=== PATIENT | female | born 1980 | race Caucasian/White ===

== ENCOUNTER 2018-06-07 09:40 | Emergency (ER) | payer BC, OTHER ==
[2018-06-07 09:54] VITALS: TEMP 98.4; BMI 38.1
--- NOTE | 2018-06-07 10:04 | PDOC ---
History of Present Illness - General Chief Complaint: Vaginal Bleeding Stated Complaint: VAGINAL BLEEDING () History Source: Patient - History of Present Illness Initial Comments: 06/07/18 10:45 The patient is a 37 year old female with no PMH that presented to ER complaining of vaginal bleeding and lower abdominal cramping that started yesterday in the morning. The pain is intermittent, moderate, radiating to the back, no alleviating/aggravating factors. 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 The patient denies fever, chills, dysuria, frequency, nausea, vomiting, no vaginal injury, discharge, last sexual intercourse was last week. Her previous pregnancies were not complicated. Timing/Duration: reports: constant Quality: reports: moderate Abdominal Pain Onset Location: reports: other (lower abdomen) Pain Radiation: reports: back Aggravating Factors: improves with: None Alleviating Factors: improves with: None Past History - Past Medical History Allergies/Adverse Reactions: Allergies Allergy/AdvReac Type Severity Reaction Status Date / Time No Known Allergies Allergy Verified 08/28/15 16:05 Home Medications: Ambulatory Orders Nitrofurantoin Monohyd/M-Cryst [Macrobid -] 100 mg PO BID #10 capsule 06/07/18 Asthma: No Cancer: No Cardiac Disorders: No COPD: No Diabetes: No HTN: No Seizures: No Thyroid Disease: No - Surgical History Cholecystectomy: No - Immunization History Immunization Up to Date: No - Suicide/Smoking/Psychosocial Hx Smoking History: Never smoked Have you smoked in the past 12 months: No Information on smoking cessation initiated: No Hx Alcohol Use: No Drug/Substance Use Hx: No Hx Substance Use Treatment: No Review of Systems - Review of Systems Able to Perform ROS?: Yes Constitutional: No: Symptoms Reported HEENTM: No: Symptoms Reported Respiratory: No: Symptoms reported, Cough, Shortness of Breath Cardiac (ROS): No: Symptoms Reported, Chest Pain ABD/GI: Yes: Symptoms Reported, See HPI, Abdominal cramping, Other (vaginal bleeding). No: Nausea : Yes: Dysuria. No: Symptoms Reported Musculoskeletal: Yes: Symptoms Reported, Back Pain *Physical Exam - Vital Signs Last Vital Signs Temp Pulse Resp BP Pulse Ox 98.4 F 87 18 115/62 99 06/07/18 09:52 06/07/18 09:52 06/07/18 09:52 06/07/18 09:52 06/07/18 09:52 - Physical Exam Respiratory/Chest: positive: Lungs Clear. negative: Respiratory Distress, Accessory Muscle Use, Rhonchi, Stridor, Wheezing Cardiovascular: positive: Regular Rhythm, Regular Rate, S1, S2. negative: JVD, Murmur Female Pelvic Exam: positive: normal adnexa, normal size ovaries, vaginal bleeding, other (significant amount of vaginal bleeding, os couldn't be palpated or visualized). negative: adnexal tenderness Gastrointestinal/Abdominal: positive: Tender (mild tenderness to palpation in lower abdomen), Soft Moderate Sedation - Procedure Monitoring Vital Signs: Procedure Monitoring Vital Signs Temperature 98.4 F 06/07/18 09:52 Pulse Rate 87 06/07/18 09:52 Respiratory Rate 18 06/07/18 09:52 Blood Pressure 115/62 06/07/18 09:52 O2 Sat by Pulse Oximetry (%) 99 06/07/18 09:52 ED Treatment Course - LABORATORY CBC & Chemistry Diagram: 06/07/18 12:10 06/07/18 12:10 Medical Decision Making - Medical Decision Making 06/07/18 10:53 The patient is a 37 year old female according to positive test, that presented to ED complaining of vaginal bleeding and abdominal cramping. It is possibly miscarriage, we ordered CBC, CMP, UA, beta quant. and transvaginal US to confirm intrauterine . 06/07/18 12:21 US-no intrauterine identified. Labwork pending. Signed out to afternoon resident. *DC/Admit/Observation/Transfer Diagnosis at time of Disposition: Vaginal bleeding - Discharge Dispostion Disposition: HOME Condition at time of disposition: Stable - Prescriptions Prescriptions: Nitrofurantoin Monohyd/M-Cryst [Macrobid -] 100 mg PO BID #10 capsule - Referrals Referrals: [facility] [place] [Provider Group] Adrián Goddard MD [Staff Physician] - - Patient Instructions Printed Discharge Instructions: DI for Vaginal Bleeding Additional Instructions: You were seen in the emergency department for the evaluation of your vaginal bleeding. the ultrasound did not show a and your beta-hcg was approximately 101. Please return to our emergency department or your OBGYN or our referred OBGYN physician 48 hours after discharge for a repeat [facility] and ultrasound. Please return to the emergency department if you have worsening symptoms or new concerning symptoms such as fever/chills, new vaginal discharge , worsening abdominal pain, and nausea/vomiting. Thank you. - Post Discharge Activity Forms/Work/School Notes: Back to Work
--- NOTE | 2018-06-07 11:06 | PDOC ---
Attending Attestation - Resident Resident Name: AbenanorisswethaBere - ED Attending Attestation I have performed the following: I have examined & evaluated the patient, The case was reviewed & discussed with the resident, I agree w/resident's findings & plan, Exceptions are as noted - HPI HPI: 06/07/18 11:02 37 F @ 5 weeks by LMP presenting to ED with abdominal cramping and vaginal bleeding. Pt states she started having cramps last night. Reports heavy vaginal bleeding with clots. Denies F/C. Denies dysuria/flank pain. No N/V/D. - Physicial Exam PE: 06/07/18 11:03 "GENERAL: Awake, alert, and fully oriented, in no acute distress. HEAD: No signs of trauma EYES: PERRLA, EOMI, sclera anicteric, conjunctiva clear ENT: Auricles normal inspection, hearing grossly normal, nares patent, oropharynx clear without exudates. Moist mucosa NECK: Nontender, no stepoffs, Normal ROM, supple, no lymphadenopathy, JVD, or masses LUNGS: Breath sounds equal, clear to auscultation bilaterally. No wheezes, and no crackles HEART: Regular rate and rhythm, normal S1 and S2, no murmurs, rubs or gallops ABDOMEN: Soft, nontender, normoactive bowel sounds. No guarding, no rebound. No masses EXTREMITIES: Normal range of motion, no edema. No clubbing or cyanosis. No cords, erythema, or tenderness NEUROLOGICAL: Cranial nerves II through XII intact. 5/5 strength and sensation in all extremities, Normal speech, normal gait, normal cerebellar function SKIN: Warm, Dry, normal turgor, no rashes or lesions noted. : os closed, + blood in vault, no CMT or adnexal tenderness - Medical Decision Making 06/07/18 11:04 37 F @ 5 weeks by LMP presenting with vaginal bleeding and cramping. Benign abdominal exam. Possible spontaneous Ab. - Labs, T&S - TVUS 06/07/18 13:18 Labs notable for HCG 100 TVUS with no IUP Pt advised to have repeat US and bloodwork in 48 hours UA consistent with UTI. Will tx with macrobid. Pt is well appearing, with normal vitals. Clinically stable for DC at this time. I discussed the physical exam findings, ancillary test results and final diagnoses with the patient. I answered all of the patient's questions. The patient was satisfied with the care received and felt comfortable with the discharge plan and treatment plan. The patient agrees to follow up with the primary care physician within 24-72 hours.
[2018-06-07 12:39] LABS: BASO % 0.5 % (0-2.0); HEMATOCRIT 42.4 % (32.4-45.2); HEMOGLOBIN 13.8 GM/dL (10.7-15.3); LYMPH % 35.3 % (8-40); MCH 29.8 pg (25.7-33.7); MCHC 32.5 g/dl (32.0-36.0); MEAN CELL VOLUME 91.6 fl (80-96); MEAN PLT VOLUME 8.1 fl (7.5-11.1); MONO % 6.7 % (3.8-10.2); NEUT % 56.5 % (42.8-82.8); PLATELET COUNT 298 K/MM3 (134-434); RBC 4.63 M/mm3 (3.60-5.2); RDW 13.9 % (11.6-15.6); WHITE BLOOD COUNT 7.8 K/mm3 (4.0-10.0)
[2018-06-07 12:52] LABS: URINE APPEARANCE CLOUDY; URINE BILIRUBIN NEGATIVE (<2.0 mg/dL); URINE COLOR DKYELLOW; URINE GLUCOSE (UA) NEGATIVE (NEGATIVE); URINE KETONE NEGATIVE (NEGATIVE); URINE LEUK ESTERASE 1+ (NEGATIVE); URINE NITRITE NEGATIVE (NEGATIVE); URINE PROTEIN 1+ (NEGATIVE); URINE UROBILINOGEN NEGATIVE mg/dL (0.2-1.0)
[2018-06-07 13:06] LABS: EPI CELLS RARE /HPF (FEW); URINE BACTERIA MANY /hpf (NONE SEEN); URINE MUCUS RARE
[2018-06-07 13:14] LABS: ALBUMIN 3.6 g/dl (3.4-5.0); ALK PHOS 110 U/L (45-117); ANION GAP 7 MMOL/L (8-16); BILIRUBIN,TOTAL 0.4 mg/dL (0.2-1); BLOOD UREA NITROGEN 7 mg/dL (7-18); CALCIUM 8.9 mg/dL (8.5-10.1); CHLORIDE 105 mmol/L (98-107); CO2 28 mmol/L (21-32); CREATININE 0.5 mg/dL (0.55-1.3); GLUCOSE,RANDOM 66 mg/dL (74-106); POTASSIUM 4.1 mmol/L (3.5-5.1); SGOT/AST 43 U/L (15-37); SGPT/ALT 55 U/L (13-61); SODIUM 140 mmol/L (136-145); TOT PROT 7.2 g/dl (6.4-8.2)
--- NOTE | 2018-06-07 14:33 | PDOC ---
*Physical Exam - Vital Signs Last Vital Signs Temp Pulse Resp BP Pulse Ox 98.4 F 87 18 115/62 99 06/07/18 09:52 06/07/18 09:52 06/07/18 09:52 06/07/18 09:52 06/07/18 12:22 ED Treatment Course - LABORATORY CBC & Chemistry Diagram: 06/07/18 12:10 06/07/18 12:10 - ADDITIONAL ORDERS Additional order review: Laboratory Results 06/07/18 06/07/18 06/07/18 12:10 12:10 12:10 Sodium 140 Potassium 4.1 Chloride 105 Carbon Dioxide 28 Anion Gap 7 L BUN 7 Creatinine 0.5 L Creat Clearance w eGFR > 60 Random Glucose 66 L Calcium 8.9 Total Bilirubin 0.4 AST 43 H ALT 55 Alkaline Phosphatase 110 Total Protein 7.2 Albumin 3.6 Beta HCG, Quant 101.8 Urine Color Dkyellow Urine Appearance Cloudy Urine pH 6.0 Ur Specific Dyer 1.018 Urine Protein 1+ H Urine Glucose (UA) Negative Urine Ketones Negative Urine Blood 3+ H Urine Nitrite Negative Urine Bilirubin Negative Urine Urobilinogen Negative Ur Leukocyte Esterase 1+ H Urine WBC (Auto) 122 Urine RBC (Auto) 1711 Ur Epithelial Cells Rare Urine Bacteria Many Urine Mucus Rare Blood Type O POSITIVE Antibody Screen Negative 06/07/18 12:10 RBC 4.63 MCV 91.6 MCHC 32.5 RDW 13.9 MPV 8.1 Neutrophils % 56.5 Lymphocytes % 35.3 D Monocytes % 6.7 Eosinophils % 1.0 Basophils % 0.5 *DC/Admit/Observation/Transfer Diagnosis at time of Disposition: Vaginal bleeding - Discharge Dispostion Disposition: HOME Condition at time of disposition: Stable Decision to Admit order: No - Prescriptions Prescriptions: Nitrofurantoin Monohyd/M-Cryst [Macrobid -] 100 mg PO BID #10 capsule - Referrals Referrals: Adrián Goddard MD [Staff Physician] - [facility] [place] [Provider Group] - Patient Instructions Printed Discharge Instructions: DI for Vaginal Bleeding Additional Instructions: You were seen in the emergency department for the evaluation of your vaginal bleeding. the ultrasound did not show a and your beta-hcg was approximately 101. Please return to our emergency department or your OBGYN or our referred OBGYN physician 48 hours after discharge for a repeat bhcg and ultrasound. Please return to the emergency department if you have worsening symptoms or new concerning symptoms such as fever/chills, new vaginal discharge , worsening abdominal pain, and nausea/vomiting. Thank you. - Post Discharge Activity Forms/Work/School Notes: Back to Work
[2018-06-07 16:26] VITALS: BP 110/70; PULSE 82
== END 2018-06-07 15:15 | disposition home or self-care (01) ==
LOC: JER 09:40
DX: O26.891 Other specified pregnancy related conditions, first trimester (principal); Z3A.01 Less than 8 weeks gestation of pregnancy; N93.9 Abnormal uterine and vaginal bleeding, unspecified
CPT/HCPCS: 36415; 76830-TC; 80053; 81003; 81015; 84702; 85025; 86850; 86900; 86901; 87086; 87186; 99282-25

== ENCOUNTER 2020-04-24 17:15 | Inpatient (IN) | payer BC ==
--- OUTSIDE RECORDS SUMMARY | 2020-04-24 19:15 | XMS ---
:1980 Author Organization [facility] Support Name Relationship Address Phone ESPINOSA HANDS Unavailable [address] [place] [address] ESSENCE CONNELLY [address] [phone] [place] [address] Re-disclosure Warning The records that you are about to access may contain information from federally- assisted alcohol or drug abuse programs. If such information is present, then the following federally mandated warning applies: This information has been disclosed to you from records protected by federal confidentiality rules (42 CFR part 2). The federal rules prohibit you from making any further disclosure of this information unless further disclosure is expressly permitted by the written consent of the person to whom it pertains or as otherwise permitted by 42 CFR part 2. A general authorization for the release of medical or other information is NOT sufficient for this purpose. The Federal rules restrict any use of the information to criminally investigate or prosecute any alcohol or drug abuse patient.The records that you are about to access may contain highly sensitive health information, the redisclosure of which is protected by Article 27-F of the [facility] Public Health law. If you continue you may haveaccess to information: Regarding HIV / AIDS; Provided by facilities licensed or operated by the [facility] Office of Mental Health; or Provided by the [facility] Office for People With Developmental Disabilities. If such information is present, then the following [facility] mandated warning applies: This information has been disclosed to you from confidential records which are protected by state law. State law prohibits you from making any further disclosure of this information without the specific written consent of the person to whom it pertains, or as otherwise permitted by law. Any unauthorized further disclosure in violation of state law may result in a fine or intermediate sentence or both. A general authorization for the release of medical or other information is NOT sufficient authorization for further disclosure. Insurance Providers Payer name Policy type / Policy ID Covered Covered constitution party's Policy Plan Coverage type constitution party ID relationship to [employer] Information hollins [employer] PPO [id number] SP [id number] Results ID Date Data Source [id number] 12/07/2019 12:00:00 AM EDT [facility] Name Value Range Interpretation Code Description Data Rosanna rce(s) Supporting Document(s ) 2019-nCoV [facility] RNA XXX RADHA+probe- Imp This lab was ordered by TENZIN darling nd reported by [employer] Procedure
[2020-04-24] MEDS ORDERED: BETAMET ACET/BETAMET NA PH 30 MG/5 ML VIAL IM ONE (19:25)
[2020-04-24] MEDS ORDERED: SODIUM CHLORIDE 1,000 ML IV SCH (19:30)
[2020-04-24] MEDS ORDERED: DEXTROSE 5%-NORMAL SALINE 1,000 ML IV SCH (19:30)
--- NOTE | 2020-04-24 20:17 | HP ---
Admitting History and Physical - Admission Chief Complaint: Vaginal spotting from last night History Source: Patient Limitations to Obtaining History: No Limitations - Past Medical History ...: Yes ...: 3 ...Para: 2 Endocrine: Yes: Diabetes Mellitus Dermatology: Yes: Basal Cell - Past Surgical History Past Surgical History: Yes: Bariatric Surgery, Additional Past Surgical History: Abdominoplasty - Smoking History Smoking history: Never smoked Have you smoked in the past 12 months: No - Alcohol/Substance Use Hx Alcohol Use: No History of Substance Use: reports: None - Social History ADL: Independent Occupation: Body Artist History of Recent Travel: No Home Medications - Allergies Allergies/Adverse Reactions: Allergies Allergy/AdvReac Type Severity Reaction Status Date / Time No Known Allergies Allergy Verified 08/28/15 16:05 - Home Medications Home Medications: Ambulatory Orders Nitrofurantoin Monohyd/M-Cryst [Macrobid -] 100 mg PO BID #10 capsule 06/07/18 Physical Examination Constitutional: Yes: Well Nourished, Mild Distress (Feels contractions when they occur.) Eyes: Yes: WNL, Conjunctiva Clear HENT: Yes: WNL, Atraumatic, Normocephalic Neck: Yes: WNL Cardiovascular: Yes: Regular Rate and Rhythm Respiratory: Yes: WNL Gastrointestinal: Yes: Abdomen, Obese, Other (Scar from abdominoplasty) ...Rectal Exam: Yes: Deferred Renal/: Yes: Hematuria, Musculoskeletal: Yes: WNL Extremities: Yes: WNL Edema: No Peripheral Pulses WNL: Yes Neurological: Yes: Alert, Oriented ...Motor Strength: WNL Psychiatric: Yes: WNL, Alert, Oriented Labs: Currently pending. Assessment/Plan 39 year old at 33w4d who reports vaginal spotting form last night. She went to work today and states when she wipes after urinating she sees blood, Reports normal movement. She has gestational diabetes and has been on insulin therapy since 28 weeks. The baby is macrosomic, and previous polyhydramnios has resolved since being on insulin. testing yesterday in the office was reactive and there was only one contraction. heart rate tracing here on labor and delivery is reactive but shows labor contractions. Discussed that based on the vaginal bleeding she needs to remain in the hospital for observation and possible delivery. Plan to start with IV hydration. Will give D5- NS alternating with Normal saline. Monitor fingersticks. Plan to give BMZ for lung maturity over 48 hours. Will most likely implement delivery after completing steroids. Explained plan to patient and her . Although pelvic examination did not reveal any blood in the vault and the cervix is closed, there is gross hematuria. Plan to continue to monitor and stabilize and deliver as per above or sooner if maternal or status changes.
[2020-04-24 20:55] LABS: EPI CELLS 28 /uL (0-25.1); HYALINE CASTS 2 /uL (0-3.1); PH,URINE 6.5 (5.0-8.0); URINE APPEARANCE CLOUDY; URINE BACTERIA 1210 /uL (0-1359); URINE BILIRUBIN NEGATIVE (NEGATIVE); URINE COLOR ORANGE; URINE GLUCOSE (UA) NEGATIVE (NEGATIVE); URINE KETONE NEGATIVE (NEGATIVE); URINE LEUK ESTERASE TRACE (NEGATIVE); URINE NITRITE NEGATIVE (NEGATIVE); URINE PROTEIN 1+ (NEGATIVE); URINE RBC 9192 /uL (0-23.9); URINE WBC 37 /uL (0-25.8)
[2020-04-24 20:57] LABS: BASO % 0.8 % (0-2.0); HEMATOCRIT 35.4 % (32.4-45.2); HEMOGLOBIN 11.8 GM/dL (10.7-15.3); LYMPH % 20.7 % (8-40); MCH 29.6 pg (25.7-33.7); MCHC 33.4 g/dl (32.0-36.0); MEAN CELL VOLUME 88.9 fl (80-96); MEAN PLT VOLUME 10.6 fl (7.5-11.1); MONO % 4.9 % (3.8-10.2); NEUT % 72.6 % (42.8-82.8); PLATELET COUNT 208 K/MM3 (134-434); RBC 3.99 M/mm3 (3.60-5.2); RDW 16.4 % (11.6-15.6); WHITE BLOOD COUNT 7.7 K/mm3 (4.0-10.0)
[2020-04-24 21:03] LABS: INR 0.98 (0.83-1.09); PROTHROMBIN TIME (PATIENT) 11.9 SEC (9.7-13.0)
[2020-04-24 21:05] LABS: ACTIVATED PTT 29.9 SECONDS (25.2-36.5)
[2020-04-24 21:25] LABS: POTASSIUM 3.9 mmol/L (3.5-5.1)
[2020-04-24 21:28] LABS: ALBUMIN 2.3 g/dl (3.4-5.0); BLOOD UREA NITROGEN 9.9 mg/dL (7-18); CALCIUM 9.1 mg/dL (8.5-10.1)
[2020-04-24 21:31] LABS: CREATININE 0.4 mg/dL (0.55-1.3)
[2020-04-24 21:33] LABS: BILIRUBIN,TOTAL 0.7 mg/dL (0.2-1); TOT PROT 6.4 g/dl (6.4-8.2)
[2020-04-24] MEDS ORDERED: BETAMET ACET/BETAMET NA PH 30 MG/5 ML VIAL ONE (21:36)
[2020-04-24] MEDS: HEPARIN NA (PORCINE) 5,000 UNITS/ML 1ML VIAL SQ SCH (22:10)
[2020-04-24] MEDS ORDERED: CEFAZOLIN 1 GM in DEXTROSE 5%-WATER - 50 ML IVPB ONE (23:04)
[2020-04-25] MEDS ORDERED: ceFAZolin SODIUM 1 GM VIAL ONE (02:18)
[2020-04-25 04:09] VITALS: BMI 41.5
[2020-04-25] MEDS: INSULIN (LEVEMIR) 100 UNITS/ML UNITS SQ SCH (08:30)
[2020-04-25] MEDS: INSULIN (NOVOLOG) ASPART 100 UNITS/ML 10ML VIAL SQ SCH ×2 (08:30→17:00)
[2020-04-25] MEDS ORDERED: INSULIN SLIDING SCALE (NOVOLOG) 1 VIAL SQ ONE (08:32)
[2020-04-25] MEDS ORDERED: INSULIN (LEVEMIR) 100 UNITS/ML UNITS SQ SCH ×2 (10:00→22:00)
[2020-04-25] MEDS: HEPARIN NA (PORCINE) 5,000 UNITS/ML 1ML VIAL SQ SCH ×2 (10:40→22:30)
[2020-04-25] MEDS: URSODIOL 300 MG CAPSULE PO SCH ×2 (10:40→22:30)
[2020-04-25] MEDS ORDERED: INSULIN (NOVOLOG) ASPART 100 UNITS/ML 10ML VIAL SQ SCH (16:30)
--- NOTE | 2020-04-25 20:23 | PN ---
Progress Note, Physician Chief Complaint: Seen this evening still on L&D in spite of order last night to transfer to the floor. Reports movement. States no blood seen when voiding. only slight pink. Contractions are rare. Received on dose of Ancef as ordered. History of Present Illness: 33w6 days today Vaginal bleeding yesterday. Gross hematuria as the presenting symptom. - Current Medication List Current Medications: Active Medications Heparin Sodium (Porcine) (Heparin -) 5,000 unit SQ BID [facility] Last Admin: 04/25/20 10:40 Dose: 5,000 unit Documented by: Dextrose/Sodium Chloride (D5-Ns -) 1,000 mls @ 125 mls/hr IV ASDIR [facility] Last Admin: 04/25/20 03:41 Dose: 125 mls/hr Documented by: Sodium Chloride (Normal Saline -) 1,000 mls @ 125 mls/hr IV ASDIR [facility] Last Admin: 04/24/20 21:31 Dose: 125 mls/hr Documented by: Insulin Aspart (Novolog Vial) 17 units SQ ACBK [facility] Last Admin: 04/25/20 08:30 Dose: 17 unit Documented by: Insulin Aspart (Novolog Vial) 19 units SQ ACDIN [facility] Last Admin: 04/25/20 17:00 Dose: 19 unit Documented by: Insulin Detemir (Levemir Vial) 20 units SQ ACBK [facility] Last Admin: 04/25/20 08:30 Dose: 20 unit Documented by: Insulin Detemir (Levemir Vial) 18 units SQ [facility] Ursodiol (Actigal -) 300 mg PO BID [facility] Last Admin: 04/25/20 10:40 Dose: 300 mg Documented by: - Objective Vital Signs: Vital Signs Temperature 98.0 F 04/25/20 16:00 Pulse Rate 100 H 04/25/20 16:00 Respiratory Rate 18 04/25/20 16:00 Blood Pressure 132/81 04/25/20 16:00 O2 Sat by Pulse Oximetry (%) 99 04/25/20 10:00 Labs: CBC, BMP 04/24/20 20:40 04/24/20 20:40 INR, PTT INR 0.98 (0.83-1.09) 04/24/20 20:40 - ....Imaging Other: Other (Having daily NST) Problem List - Problems (1) contractions Assessment/Plan: contractions still present but less frequent. May be the result or UTI in light of gross hematuria or blood in the uterus may present with hematuria and contractions. It is unclear at this time. Code(s): O47.9 - FALSE LABOR, UNSPECIFIED (2) Vaginal bleeding Assessment/Plan: Resolved vaginal bleeding. Currently awaiting second dose of BMZ. She is 34 weeks tomorrow. Explained that If there is no further bleeding or contractions, and there is a reason for the past symptoms such as a UTI, then can complete treatment of antibiotics and expectanatly manage. Need to wait for results of urine culture. If no evidence of UTI then bleeding is more concerning. Either way will need to take it day by day to determine timing of repeat that will be between 34 to 36 weeks of gestation. Explained that this is because of the Cholestasis of , Diabetes mellitus with macrosomia, and now vaginal bleeding. Code(s): N93.9 - ABNORMAL UTERINE AND VAGINAL BLEEDING, UNSPECIFIED (3) Cholestasis during Assessment/Plan: Diagnosed with cholestasis of and placed on Ursodiol just prior to . Was prescribed TID dosing as an out-patient but dosing in the hospital is only BID. Itching symptoms are improved. Will follow up with LFT's on morning CMP. Problems reviewed: Yes Code(s): O26.619 - LIVER AND BILIARY TRACT DISORD IN , UNSP TRIMESTER; K83.1 - OBSTRUCTION OF BILE DUCT Qualifiers: Trimester: third trimester Qualified Code(s): O26.613 - Liver and biliary tract disorders in , third trimester; K83.1 - Obstruction of bile duct (4) Gestational diabetes mellitus (GDM) Assessment/Plan: Blood sugars with fair control after BMZ administration. Will cover as needed with corrective doses of Aspart/Lispro. Currently Levemir and Lispro Problems reviewed: Yes Code(s): O24.419 - GESTATIONAL DIABETES MELLITUS IN , UNSP CONTROL Qualifiers: Gestational diabetes mellitus control: insulin-controlled Trimester: third trimester Qualified Code(s): O24.414 - Gestational diabetes mellitus in , insulin controlled
[2020-04-26] MEDS: NITROFURANTOIN MACROCRYSTAL 50 MG CAPSULE (FP) PO SCH ×4 (00:06→18:25)
[2020-04-26] MEDS: INSULIN (LEVEMIR) 100 UNITS/ML UNITS SQ SCH (07:05)
[2020-04-26] MEDS: INSULIN (NOVOLOG) ASPART 100 UNITS/ML 10ML VIAL SQ SCH ×2 (07:05→18:25)
--- NOTE | 2020-04-26 07:30 | PN ---
Progress Note (short form) - Note Progress Note: MFM Attending note Spoke with nurse to confirm that Chioma Yung received 2nd dose of BMZ at 9:45pm last night. Order is in place but notation not in the MAR. She is currently on L&D because there are no available beds on the floor. The nurse confirmed that BMZ was given. No vaginal bleeding has been occurred. Glucose was elevated to 210 post prandial dinner. Not notified. Fasting was not taken but will obtained now at 7:20 and was 159. She received her Levemir and Aspart insulin at 7:05 without breakfast. I will order additional 10 Units of Aspart to be given 5 minutes before breakfast. Plan for NST this morning Pending CBC and CMP this morning Pending Urine culture results from 04/24/20 Once the above actions have been completed will decide further plan. If all are within normal and bleeding was due to UTI and now has stopped will discharge home. Explained to patient that if she is allowed to go home she will remain at limited activity and will not be able to work. Problem List - Problems (1) contractions Code(s): O47.9 - FALSE LABOR, UNSPECIFIED (2) Vaginal bleeding Code(s): N93.9 - ABNORMAL UTERINE AND VAGINAL BLEEDING, UNSPECIFIED (3) Cholestasis during Code(s): O26.619 - LIVER AND BILIARY TRACT DISORD IN , UNSP TRIMESTER; K83.1 - OBSTRUCTION OF BILE DUCT Qualifiers: Trimester: third trimester Qualified Code(s): O26.613 - Liver and biliary tract disorders in , third trimester; K83.1 - Obstruction of bile duct (4) Gestational diabetes mellitus (GDM) Code(s): O24.419 - GESTATIONAL DIABETES MELLITUS IN , UNSP CONTROL Qualifiers: Gestational diabetes mellitus control: insulin-controlled Trimester: third trimester Qualified Code(s): O24.414 - Gestational diabetes mellitus in , insulin controlled
[2020-04-26] MEDS ORDERED: INSULIN (NOVOLOG) ASPART 100 UNITS/ML 10ML VIAL SQ ONE (07:43)
[2020-04-26 09:17] LABS: BASO % 0.2 % (0-2.0); HEMOGLOBIN 11.2 GM/dL (10.7-15.3); LYMPH % 17.2 % (8-40); MCH 29.5 pg (25.7-33.7); MCHC 32.9 g/dl (32.0-36.0); MEAN CELL VOLUME 89.8 fl (80-96); MEAN PLT VOLUME 10.7 fl (7.5-11.1); MONO % 3.2 % (3.8-10.2); NEUT % 79.4 % (42.8-82.8); PLATELET COUNT 188 K/MM3 (134-434); RBC 3.78 M/mm3 (3.60-5.2); RDW 15.9 % (11.6-15.6); WHITE BLOOD COUNT 8.7 K/mm3 (4.0-10.0)
[2020-04-26 09:38] LABS: ALBUMIN 2.4 g/dl (3.4-5.0); CALCIUM 9.4 mg/dL (8.5-10.1)
[2020-04-26 09:39] LABS: BLOOD UREA NITROGEN 9.1 mg/dL (7-18)
[2020-04-26 09:41] LABS: CREATININE 0.4 mg/dL (0.55-1.3)
[2020-04-26 10:17] LABS: BILIRUBIN,TOTAL 0.3 mg/dL (0.2-1); TOT PROT 6.4 g/dl (6.4-8.2)
[2020-04-26] MEDS: URSODIOL 300 MG CAPSULE PO SCH (10:30)
[2020-04-26] MEDS: HEPARIN NA (PORCINE) 5,000 UNITS/ML 1ML VIAL SQ SCH (10:30)
[2020-04-26 18:05] VITALS: BP 126/81; PULSE 92; TEMP 98.1
--- NOTE | 2020-04-26 18:44 | PN ---
Progress Note, Physician Chief Complaint: MFM Attending note No complaints. She denies any vaginal bleeding since 04/24/20. Reports positive movement. Currently 33w6d. States she is having irregular contractions. Urine culture is now noted to be received by still pending. She is taking Macrodantin that is on formulary here. testing has been reactive. - Current Medication List Current Medications: Active Medications Heparin Sodium (Porcine) (Heparin -) 5,000 unit SQ BID [facility] Last Admin: 04/26/20 10:30 Dose: 5,000 unit Documented by: Insulin Aspart (Novolog Vial) 17 units SQ ACBK [facility] Last Admin: 04/26/20 07:05 Dose: 17 unit Documented by: Insulin Aspart (Novolog Vial) 19 units SQ ACDIN [facility] Last Admin: 04/26/20 18:25 Dose: 19 unit Documented by: Insulin Detemir (Levemir Vial) 20 units SQ ACBK [facility] Last Admin: 04/26/20 07:05 Dose: 20 unit Documented by: Insulin Detemir (Levemir Vial) 18 units SQ HS [facility] Last Admin: 04/25/20 22:30 Dose: 18 units Documented by: Nitrofurantoin Macrocrystals (Macrodantin -) 100 mg PO Q6HPO [facility] Last Admin: 04/26/20 18:25 Dose: 100 mg Documented by: Ursodiol (Actigal -) 300 mg PO BID [facility] Last Admin: 04/26/20 10:30 Dose: 300 mg Documented by: - Objective Vital Signs: Vital Signs Temperature 98.1 F 04/26/20 18:05 Pulse Rate 92 H 04/26/20 18:05 Respiratory Rate 18 04/26/20 18:05 Blood Pressure 126/81 04/26/20 18:05 O2 Sat by Pulse Oximetry (%) 99 04/25/20 21:00 Labs: CBC, BMP 04/26/20 08:03 04/26/20 08:03 INR, PTT INR 0.98 (0.83-1.09) 04/24/20 20:40 - ....Imaging Other: Other (Non-stress testing has been reassuring.) Problem List - Problems (1) contractions Assessment/Plan: Now decreased in frequency and intensity. Code(s): O47.9 - FALSE LABOR, UNSPECIFIED (2) Vaginal bleeding Assessment/Plan: No vaginal bleeding since the day of admission. Has finished steroid course as of last night. Explained that in light of her two prior cesareans and abdominoplasty I do not advise return to work. Bleeding source is unclear at this time. Hematocrit is stable at 35-34%. Platelet count today is within normal. Code(s): N93.9 - ABNORMAL UTERINE AND VAGINAL BLEEDING, UNSPECIFIED (3) Cholestasis during Assessment/Plan: Liver function test are elevated but stable. Bile acids were elevated from testing in the office. Not repeated in the hospital. She will continue Ursodiol as an outpatient and has medication at home. Code(s): O26.619 - LIVER AND BILIARY TRACT DISORD IN , UNSP TRIMESTER; K83.1 - OBSTRUCTION OF BILE DUCT Qualifiers: Trimester: third trimester Qualified Code(s): O26.613 - Liver and biliary tract disorders in , third trimester; K83.1 - Obstruction of bile duct (4) Gestational diabetes mellitus (GDM) Assessment/Plan: Has not received insulin as prescribed and therefore had elevated blood glucose. The most recent check was pre-prandial and is within normal at 92. She will continue insulin regimen that was prescribed as an out patient. She will follow up in the office next week to continue maternal and surveillance. Code(s): O24.419 - GESTATIONAL DIABETES MELLITUS IN , UNSP CONTROL Qualifiers: Gestational diabetes mellitus control: insulin-controlled Trimester: third trimester Qualified Code(s): O24.414 - Gestational diabetes mellitus in , insulin controlled
== END 2020-04-26 20:45 | disposition home or self-care (01) | DRG 831 ==
LOC: JDEL 17:15 → JLDR 19:05 → J3W 04-26 18:13
PROVIDERS: ADMIT Obstetrics & Gynecology Maternal & Fetal Medicine; ATTEND Obstetrics & Gynecology Maternal & Fetal Medicine
DX: O47.00 False labor before 37 completed weeks of gestation, unspecified trimester (principal); K83.1 Obstruction of bile duct; O26.613 Liver and biliary tract disorders in pregnancy, third trimester; O23.43 Unspecified infection of urinary tract in pregnancy, third trimester; R31.0 Gross hematuria; B96.89 Other specified bacterial agents as the cause of diseases classified elsewhere; O24.414 Gestational diabetes mellitus in pregnancy, insulin controlled; Z3A.33 33 weeks gestation of pregnancy; O36.63X0 Maternal care for excessive fetal growth, third trimester, not applicable or unspecified
CPT/HCPCS: 36415; 80053; 81003; 82962; 85025; 85610; 85730; 86762; 86780; 86850; 86900; 86901; 87086; 87186; 87340; 87389; 96372; C9803; J1644; U0003

== ENCOUNTER 2020-05-08 07:15 | Inpatient (IN) | payer BC ==
[2020-05-08] MEDS ORDERED: CITRIC ACID/SODIUM CITRATE 30 ML UNIT-DOSE CUP PO ONE (08:00)
[2020-05-08] MEDS ORDERED: ELECTROLYTE-148 SOLN 500 ML IV SCH ×2 (08:00→09:00)
[2020-05-08] MEDS ORDERED: AMPICILLIN SODIUM 2 GM VIAL ONE (08:28)
[2020-05-08] MEDS ORDERED: AMPICILLIN - 2 GM in SODIUM CHLORIDE 100 ML IVPB ONE (08:30)
[2020-05-08 08:51] VITALS: BMI 41.8
[2020-05-08] MEDS ORDERED: morphine SULFATE/PF 0.5 MG/ML (2cc Syringe - QUVA) ONE (09:21)
[2020-05-08] MEDS ORDERED: OXYTOCIN 10 UNITS/ML VIAL ONE ×5 (10:11→11:17)
[2020-05-08] MEDS ORDERED: ceFAZolin SODIUM 1 GM VIAL ONE ×2 (11:17)
[2020-05-08] MEDS ORDERED: KETOROLAC TROMETHAMINE 30 MG/1 ML VIAL ONE (11:17)
[2020-05-08] MEDS ORDERED: ONDANSETRON 4 MG/2 ML VIAL IVPUSH PRN (11:27)
[2020-05-08] MEDS ORDERED: METHYLERGONOVINE MALEATE 0.2 MG/1 ML AMP IM PRN (11:34)
[2020-05-08] MEDS ORDERED: IBUPROFEN 600 MG TABLET (FP) PO PRN (11:34)
[2020-05-08 11:36] LABS: CORD BASE EXCESS -3.5 mmol/L (0-2); CORD HCO3 24.3 mmHg (20-29); CORD PCO2 53.7 mmHg (30-78); CORD pH 7.274 (7.14-7.44)
[2020-05-08 11:39] LABS: CORD HCO3 22.5 mmHg (20-29); CORD PCO2 62.5 mmHg (30-78); CORD pH 7.174 (7.14-7.44)
[2020-05-08] MEDS ORDERED: OXYTOCIN 20 UNITS in 0.9% NS 20 UNIT/1,000 ML INFUS.BAG IV ONE (12:32)
[2020-05-08] MEDS: OXYTOCIN 20 UNITS in 0.9% NS 20 UNIT/1,000 ML INFUS.BAG IV SCH (12:35)
[2020-05-08] MEDS: DEXTROSE 5%-WATER - 1,000 ML IV SCH (21:37)
[2020-05-08] MEDS: HEPARIN NA (PORCINE) 5,000 UNITS/ML 1ML VIAL SQ SCH (21:37)
[2020-05-08] MEDS: IBUPROFEN 600 MG TABLET (FP) PO PRN (21:51)
[2020-05-08] MEDS: ACETAMINOPHEN 325 MG TABLET (FP) PO PRN (21:52)
[2020-05-08] MEDS: SIMETHICONE 80 MG TAB.CHEW (FP) PO PRN (21:53)
[2020-05-09] MEDS: IBUPROFEN 600 MG TABLET (FP) PO PRN ×5 (06:02→23:45)
[2020-05-09] MEDS: ACETAMINOPHEN 325 MG TABLET (FP) PO PRN ×5 (06:03→23:45)
[2020-05-09] MEDS: SIMETHICONE 80 MG TAB.CHEW (FP) PO PRN ×4 (06:03→23:45)
[2020-05-09 07:41] LABS: BASO % 0.3 % (0-2.0); EOS % 0.8 % (0-4.5); HEMATOCRIT 27.6 % (32.4-45.2); HEMOGLOBIN 9.2 GM/dL (10.7-15.3); LYMPH % 16.2 % (8-40); MCH 29.7 pg (25.7-33.7); MCHC 33.3 g/dl (32.0-36.0); MEAN CELL VOLUME 89.1 fl (80-96); MEAN PLT VOLUME 9.8 fl (7.5-11.1); MONO % 6.7 % (3.8-10.2); PLATELET COUNT 173 K/MM3 (134-434); RDW 16.5 % (11.6-15.6); WHITE BLOOD COUNT 9.6 K/mm3 (4.0-10.0)
[2020-05-09] MEDS: HEPARIN NA (PORCINE) 5,000 UNITS/ML 1ML VIAL SQ SCH ×2 (09:38→22:00)
[2020-05-09] MEDS ORDERED: FLU VACCINE (FLULAVAL) PF 60 MCG/0.5 ML SYRINGE 2020-2021 IM ONE (10:00)
[2020-05-09] MEDS ORDERED: DIPHTH,PERTUSS(ACELL),TET 0.5 ML DISP.SYRIN IM ONE (10:00)
[2020-05-09] MEDS ORDERED: BISACODYL 10 MG SUPP.RECT RC PRN (11:34)
[2020-05-09] MEDS: OXYTOCIN 20 UNITS in 0.9% NS 20 UNIT/1,000 ML INFUS.BAG IV SCH (18:54)
[2020-05-09] MEDS: DEXTROSE 5%-WATER - 1,000 ML IV SCH (18:57)
[2020-05-09] MEDS: oxyCODONE HCL 5 MG TABLET PO PRN ×2 (20:04→23:46)
[2020-05-09] MEDS ORDERED: diphenhydrAMINE HCL 25 MG CAPSULE (FP) PO PRN (20:09)
[2020-05-10] MEDS: IBUPROFEN 600 MG TABLET (FP) PO PRN ×3 (06:08→17:54)
[2020-05-10] MEDS: ACETAMINOPHEN 325 MG TABLET (FP) PO PRN ×3 (06:08→17:54)
[2020-05-10] MEDS: oxyCODONE HCL 5 MG TABLET PO PRN ×3 (06:08→17:55)
[2020-05-10] MEDS: SIMETHICONE 80 MG TAB.CHEW (FP) PO PRN ×3 (06:09→17:55)
[2020-05-10] MEDS: FERROUS SO4 325 MG TABLET (FP) PO SCH ×2 (09:15→17:54)
[2020-05-10] MEDS: PRENATAL VITAMINS W/ FOLIC ACID TABLET (FP) PO SCH (09:15)
[2020-05-10] MEDS: HEPARIN NA (PORCINE) 5,000 UNITS/ML 1ML VIAL SQ SCH ×2 (09:15→22:24)
[2020-05-11] MEDS: ACETAMINOPHEN 325 MG TABLET (FP) PO PRN ×3 (00:22→22:53)
[2020-05-11] MEDS: SIMETHICONE 80 MG TAB.CHEW (FP) PO PRN ×3 (00:22→22:54)
[2020-05-11] MEDS: IBUPROFEN 600 MG TABLET (FP) PO PRN ×3 (00:23→17:18)
[2020-05-11] MEDS: oxyCODONE HCL 5 MG TABLET PO PRN ×2 (00:23→06:22)
[2020-05-11 08:32] LABS: BASO % 0.2 % (0-2.0); EOS % 1.8 % (0-4.5); HEMATOCRIT 25.5 % (32.4-45.2); HEMOGLOBIN 8.3 GM/dL (10.7-15.3); LYMPH % 26.8 % (8-40); MCH 28.7 pg (25.7-33.7); MCHC 32.4 g/dl (32.0-36.0); MEAN CELL VOLUME 88.5 fl (80-96); MEAN PLT VOLUME 9.4 fl (7.5-11.1); MONO % 5.8 % (3.8-10.2); NEUT % 65.4 % (42.8-82.8); PLATELET COUNT 234 K/MM3 (134-434); RBC 2.88 M/mm3 (3.60-5.2); RDW 16.9 % (11.6-15.6); WHITE BLOOD COUNT 8.8 K/mm3 (4.0-10.0)
[2020-05-11] MEDS: FERROUS SO4 325 MG TABLET (FP) PO SCH ×2 (08:43→17:10)
[2020-05-11] MEDS ORDERED: oxyCODONE HCL 5 MG TABLET PO ONE (09:30)
[2020-05-11] MEDS: PRENATAL VITAMINS W/ FOLIC ACID TABLET (FP) PO SCH (10:27)
[2020-05-11] MEDS: HEPARIN NA (PORCINE) 5,000 UNITS/ML 1ML VIAL SQ SCH ×2 (10:28→22:52)
[2020-05-12] MEDS: ACETAMINOPHEN 325 MG TABLET (FP) PO PRN ×2 (04:16→08:51)
[2020-05-12] MEDS: IBUPROFEN 600 MG TABLET (FP) PO PRN (08:51)
[2020-05-12] MEDS: PRENATAL VITAMINS W/ FOLIC ACID TABLET (FP) PO SCH (09:02)
[2020-05-12 09:45] VITALS: BP 131/89; PULSE 99; TEMP 98.6
== END 2020-05-12 12:30 | disposition home or self-care (01) | DRG 783 ==
LOC: JLDR 07:15 → J3W 15:32
PROVIDERS: ADMIT Obstetrics & Gynecology Maternal & Fetal Medicine; ATTEND Obstetrics & Gynecology Maternal & Fetal Medicine
PROC: 10D00Z1 Extraction of Products of Conception, Low, Open Approach (ICD-10-PCS; principal; 2020-05-08)
PROC: 0UL70ZZ Occlusion of Bilateral Fallopian Tubes, Open Approach (ICD-10-PCS; 2020-05-08)
DX: O42.013 Preterm premature rupture of membranes, onset of labor within 24 hours of rupture, third trimester (principal); K83.1 Obstruction of bile duct; O26.62 Liver and biliary tract disorders in childbirth; O36.63X0 Maternal care for excessive fetal growth, third trimester, not applicable or unspecified; O24.424 Gestational diabetes mellitus in childbirth, insulin controlled; O34.219 Maternal care for unspecified type scar from previous cesarean delivery; O99.214 Obesity complicating childbirth; E66.01 Morbid (severe) obesity due to excess calories; Z98.84 Bariatric surgery status; Z98.890 Other specified postprocedural states; Z30.2 Encounter for sterilization; Z3A.35 35 weeks gestation of pregnancy; Z37.0 Single live birth
CPT/HCPCS: 36415; 36600; 82803; 82962; 85025; 88302-TC; 88307-TC; 90715; G0008; J1644; Q2036

== ENCOUNTER 2020-10-06 03:36 | Inpatient (IN) | payer BC ==
[2020-10-06 04:07] VITALS: BMI 37.3
[2020-10-06] MEDS ORDERED: ACETAMINOPHEN 1000 MG/100 ML VIAL (NON FORMULARY) IVPB ONE (04:29)
[2020-10-06] MEDS ORDERED: SODIUM CHLORIDE 0.9% 500 ML INFUS.BAG IV ONE (04:39)
[2020-10-06] MEDS ORDERED: ACETAMINOPHEN INJECTION 100 ML IVPB ONE (04:39)
[2020-10-06 04:53] LABS: BASO % 0.2 % (0-2.0); EOS % 0.2 % (0-4.5); HEMATOCRIT 33.6 % (32.4-45.2); HEMOGLOBIN 11.1 GM/dL (10.7-15.3); LYMPH % 7.7 % (8-40); MEAN PLT VOLUME 8.7 fl (7.5-11.1); MONO % 3.7 % (3.8-10.2); NEUT % 88.2 % (42.8-82.8); PLATELET COUNT 276 K/MM3 (134-434); RBC 4.09 M/mm3 (3.60-5.2); RDW 18.6 % (11.6-15.6)
[2020-10-06 04:59] LABS: EPI CELLS 5 /uL (0-25.1); HYALINE CASTS 0 /uL (0-3.1); URINE APPEARANCE CLOUDY; URINE BACTERIA >9,000 /uL (0-1359); URINE BILIRUBIN 1+ (NEGATIVE); URINE COLOR DK YELLOW; URINE GLUCOSE (UA) NEGATIVE (NEGATIVE); URINE KETONE NEGATIVE (NEGATIVE); URINE LEUK ESTERASE 3+ (NEGATIVE); URINE NITRITE POSITIVE (NEGATIVE); URINE PROTEIN 2+ (NEGATIVE); URINE RBC 17 /uL (0-23.9); URINE WBC 2217 /uL (0-25.8)
[2020-10-06 05:01] LABS: INR 1.15 (0.83-1.09); PROTHROMBIN TIME (PATIENT) 13.8 SEC (9.7-13.0)
[2020-10-06 05:12] LABS: ALBUMIN 3.5 g/dl (3.4-5.0); BLOOD UREA NITROGEN 11.1 mg/dL (7-18)
[2020-10-06 05:16] LABS: BILIRUBIN,TOTAL 0.8 mg/dL (0.2-1); CREATININE 0.7 mg/dL (0.55-1.3); TOT PROT 7.1 g/dl (6.4-8.2)
[2020-10-06] MEDS ORDERED: CEFTRIAXONE 1 GM in DEXTROSE 5%-WATER - 50 ML IVPB ONE (06:10)
[2020-10-06] MEDS ORDERED: CEFTRIAXONE 1 GM/50 ML BAG ONE (06:16)
[2020-10-06 11:07] LABS: BILIRUBIN,DIRECT 0.3 mg/dL (0.0-0.2)
[2020-10-06] MEDS: SODIUM CHLORIDE 0.9% 1000 ML INFUS.BAG IV SCH (13:29)
[2020-10-06] MEDS ORDERED: diphenhydrAMINE HCL 25 MG CAPSULE (FP) PO ONE (20:00)
[2020-10-06] MEDS: ACETAMINOPHEN 325 MG TABLET (FP) PO PRN ×2 (20:25→20:27)
[2020-10-06] MEDS ORDERED: ACETAMINOPHEN 325 MG TABLET (FP) ONE (20:26)
[2020-10-07] MEDS: ACETAMINOPHEN 325 MG TABLET (FP) PO PRN ×3 (02:08→21:34)
[2020-10-07 08:50] LABS: BASO % 0.8 % (0-2.0); EOS % 0.4 % (0-4.5); HEMATOCRIT 34.4 % (32.4-45.2); HEMOGLOBIN 10.9 GM/dl (10.7-15.3); LYMPH % 16.1 % (8-40); MCH 26.2 pg (25.7-33.7); MCHC 31.7 g/dl (32.0-36.0); MEAN CELL VOLUME 82.8 fl (80-96); MEAN PLT VOLUME 9.2 fl (7.5-11.1); MONO % 10.8 % (3.8-10.2); NEUT % 71.9 % (42.8-82.8); PLATELET COUNT 277 K/MM3 (134-434); RBC 4.16 M/mm3 (3.60-5.2); RDW 18.2 % (11.6-15.6); WHITE BLOOD COUNT 8.7 K/mm3 (4.0-10.8)
[2020-10-07] MEDS ORDERED: CEFTRIAXONE 1 GM in DEXTROSE 5%-WATER - 50 ML IVPB ONE (09:00)
[2020-10-07 09:15] LABS: CALCIUM 8.8 mg/dl (8.5-10); CREATININE 0.5 mg/dl (0.55-1.3)
[2020-10-07] MEDS ORDERED: DEXTROSE 5%-WATER - 50 ML IVPB ONE (09:36)
[2020-10-07] MEDS ORDERED: cefTRIAXone SODIUM 1 GM VIAL ONE (09:36)
[2020-10-07] MEDS ORDERED: ACETAMINOPHEN 325 MG TABLET (FP) PO ONE (10:25)
[2020-10-07] MEDS: KCL 10 MEQ IVPB 10 MEQ/100 ML INFUS.BAG IVPB SCH ×2 (10:51→14:03)
[2020-10-07] MEDS: POTASSIUM CHLORIDE 20 MEQ PREMIX IVPB 100 ML IVPB SCH ×2 (11:14→13:00)
[2020-10-07] MEDS: SODIUM CHLORIDE 0.9% 1000 ML INFUS.BAG IV SCH (11:15)
[2020-10-08] MEDS ORDERED: DEXTROSE 5%-WATER - 50 ML IVPB ONE (10:04)
[2020-10-08] MEDS ORDERED: cefTRIAXone SODIUM 1 GM VIAL ONE (10:04)
[2020-10-08] MEDS: ACETAMINOPHEN 325 MG TABLET (FP) PO PRN (10:06)
[2020-10-08] MEDS: CEFTRIAXONE 1 GM in DEXTROSE 5%-WATER - 50 ML IVPB SCH (10:06)
[2020-10-08] MEDS: SODIUM CHLORIDE 0.9% 1000 ML INFUS.BAG IV SCH (10:08)
[2020-10-08] MEDS ORDERED: VANCOMYCIN 1 GM in D5W (PRE-DOCKED) 1,000 MG/250 ML IVPB ONE (15:00)
[2020-10-09 07:49] LABS: BASO % 0.3 % (0-2.0); EOS % 0.8 % (0-4.5); HEMATOCRIT 36.8 % (32.4-45.2); HEMOGLOBIN 11.7 GM/dl (10.7-15.3); LYMPH % 27.7 % (8-40); MCH 26.5 pg (25.7-33.7); MCHC 31.8 g/dl (32.0-36.0); MEAN CELL VOLUME 83.2 fl (80-96); MEAN PLT VOLUME 8.2 fl (7.5-11.1); MONO % 9.3 % (3.8-10.2); NEUT % 61.9 % (42.8-82.8); PLATELET COUNT 333 K/MM3 (134-434); RBC 4.43 M/mm3 (3.60-5.2); RDW 17.5 % (11.6-15.6); WHITE BLOOD COUNT 6.8 K/mm3 (4.0-10.8)
[2020-10-09] MEDS: ACETAMINOPHEN 325 MG TABLET (FP) PO PRN (08:13)
[2020-10-09 08:17] LABS: ALBUMIN 3.4 g/dl (3.4-5.0); BILIRUBIN,TOTAL 0.5 mg/dl (0.2-1); CALCIUM 9.1 mg/dl (8.5-10); CREATININE 0.5 mg/dl (0.55-1.3); TOT PROT 7.1 g/dl (6.4-8.2)
[2020-10-09] MEDS ORDERED: cefTRIAXone SODIUM 1 GM VIAL ONE (09:08)
[2020-10-09] MEDS ORDERED: DEXTROSE 5%-WATER - 50 ML IVPB ONE (09:08)
[2020-10-09] MEDS: CEFTRIAXONE 1 GM in DEXTROSE 5%-WATER - 50 ML IVPB SCH (10:05)
[2020-10-10 06:34] VITALS: BP 121/68; PULSE 70; TEMP 98.3
[2020-10-10 08:08] LABS: BASO % 0.2 % (0-2.0); EOS % 0.8 % (0-4.5); HEMOGLOBIN 11.9 GM/dl (10.7-15.3); LYMPH % 34.6 % (8-40); MCH 27.3 pg (25.7-33.7); MCHC 33.1 g/dl (32.0-36.0); MEAN CELL VOLUME 82.6 fl (80-96); MONO % 8.2 % (3.8-10.2); NEUT % 56.2 % (42.8-82.8); PLATELET COUNT 364 K/MM3 (134-434); RBC 4.35 M/mm3 (3.60-5.2); WHITE BLOOD COUNT 6.3 K/mm3 (4.0-10.8)
[2020-10-10 08:33] LABS: ALBUMIN 3.5 g/dl (3.4-5.0); BILIRUBIN,TOTAL 0.5 mg/dl (0.2-1); CALCIUM 9.5 mg/dl (8.5-10); CREATININE 0.5 mg/dl (0.55-1.3); MAGNESIUM 2.1 mg/dL (1.8-2.4); TOT PROT 7.1 g/dl (6.4-8.2)
[2020-10-10] MEDS ORDERED: cefTRIAXone SODIUM 1 GM VIAL ONE (09:14)
[2020-10-10] MEDS ORDERED: DEXTROSE 5%-WATER - 50 ML IVPB ONE (09:14)
[2020-10-10] MEDS: CEFTRIAXONE 1 GM in DEXTROSE 5%-WATER - 50 ML IVPB SCH (09:39)
== END 2020-10-10 14:58 | disposition home or self-care (01) | DRG 872 ==
LOC: JER 03:36 → JERBED 06:13 → FM/S 10-07 01:12
PROVIDERS: ADMIT Internal Medicine; ATTEND Nurse Practitioner Acute Care
DX: A41.51 Sepsis due to Escherichia coli [E. coli] (principal); N39.0 Urinary tract infection, site not specified; N12 Tubulo-interstitial nephritis, not specified as acute or chronic; I10 Essential (primary) hypertension; R73.03 Prediabetes; E66.9 Obesity, unspecified; Z68.37 Body mass index [BMI] 37.0-37.9, adult; B96.4 Proteus (mirabilis) (morganii) as the cause of diseases classified elsewhere; R00.0 Tachycardia, unspecified; Z98.84 Bariatric surgery status
CPT/HCPCS: 36415; 71046-TC-FY; 74177-TC; 80048; 80053; 81003; 82248; 82550; 82728; 83605; 83615; 83735; 84484; 85025; 85610; 85730; 86140; 87040; 87076; 87086; 87186; 87804; 93005; 93010; 99285-25; C9803; J0131; Q9967; U0003; U0005